=== PATIENT | male | born 1990 | race African-American/Black ===

== ENCOUNTER 2023-10-04 02:03 | Day surgery (SDC) | payer BC, SELFPAY ==
[2023-10-01 10:15] VITALS: BMI 25.8
--- NOTE | 2023-10-01 10:21 | PC.NURSE ---
Report to the Outpatient Waiting Room, entrance under the green pavilion located off [facility], at time 0730 on date 10/04/23. Planned Procedure Time: 0930. Time changes happen often and if your time is changed the preop area will call you the afternoon before. - You and your visitor will be asked to self-screen and do not enter if you have any COVID symptoms. - A mask is optional within the hospital at this time. Patients may have clear liquids (water, carbonated beverages, clear teas, apple juice) until 3 hours prior to surgery with a maximum of 20 ounces. - No food from midnight until time of surgery Take the following medications with a SIP of water the morning of surgery: N/A DO NOT STOP ANY OF YOUR OTHER PRESCRIPTION MEDICATIONS PRIOR TO SURGERY ?EXCEPT THE FOLLOWING Medications to discontinue per physician: N/A Date to take last dose: N/A Please no make-up, nail nepali, hairspray, perfume, deodorant, or body powder the day of surgery. No jewelry (including any body piercings) or valuables the day of surgery, leave them at home. Please take a shower or bath the night before, or the morning of, surgery with an antibacterial soap. Wear comfortable, loose fitting clothing. - Jewelry must be removed prior to entering the operating room. Rings and piercings that are not removed may be cut off. - The hospital will not accept responsibility for valuables. - Please leave all valuables, including medications, at home the day of surgery. If you are going home after surgery, a licensed bus driver supervisor must drive you home. - NO public transportation without another adult if you receive anesthesia. - We recommend that an adult stay with you for 24 hours following discharge. - We also recommend that you do not drive, make important decision, drink alcoholic beverages, or take any drugs that were not prescribed by your health care provider for at least 24 hours after your discharge time. Follow any additional instructions given to you from your surgeon. If you or anyone in your household have experienced Covid symptoms in the past week, please notify your surgeon or the nurse liaison at the phone number below for possible testing. Telephone instructions given to PT - XENIA CAMACHO and asked if any additional questions and then verbalized understanding. Patient advised to call surgeon office or pre surgery nurse liaison [phone] if any additional questions.
[2023-10-04] VITALS (8 sets, daily range): BP systolic 119–154; BP diastolic 64–85; PULSE 63–105; RESP 8–21; TEMP 36.7–37.1; O2SAT 97–100
--- NOTE | 2023-10-04 07:11 | PM.IMHP ---
H&P: HPI History of Present Illness Date/Time: 10/04/23 07:11 Chief Complaint: nasopharyngeal mass Review of Systems Review of Systems: All systems reviewed & are unremarkable except as noted in HPI and below PMFSH Social History Social History Smoking status: Former smoker Additional smoking assessment comments: FORMER 1 BLACK AND BROWN A DAY Alcohol intake: current Drinks per week: 2 Substance use: current Substance use type: marijuana Living arrangements: with family Spiritual care concerns: No Meds Home Medications and Allergies Home Medications Medication Instructions Recorded Confirmed Type No Home Medications 10/01/23 10/01/23 History Allergies Allergy/AdvReac Type Severity Reaction Status Date / Time No Known Allergies Allergy Verified 10/01/23 10:14 Exam Narrative: enlarged tissue in nasopharynx on endoscopic exam, non obstructive, not friable. 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 r/b/a reviewed, pt understands and agrees to proceed. Refer to outpt H&P for additional detail.
--- NOTE | 2023-10-04 07:13 | WPDHPUPDATE1 ---
History and Physical Update Update Date/Time: 10/04/23 07:13 History and Physical has been reviewed, including an updated exam of the patient. There are NO changes in the patient's condition. Risks, benefits, and alternatives have been discussed and questions answered. Patient agrees to proceed with procedure.
[2023-10-04] MEDS: LACTATED RINGERS 1,000 ML 30 ML IV CONT (07:40)
--- NOTE | 2023-10-04 08:16 | WPDANESEPPF ---
Anes - Initial Pre Proc Eval Procedure: Operation Date: 10/04/23 09:30 Proposed Procedures p Direct Laryngoscopy with Biopsy of Posterior Nasopharyngeal Mass - Maximilian Soto MD Date/Time: 10/04/23 08:16 Surgeon: Maximilian Soto MD Pre Op Diagnosis: mass of nasopharynx Patient Data Age: 33 Gender: M Height: 1.8 m Weight: 89.25 kg Last Vital Signs Temp 37.1 C 10/04/23 07:22 Pulse 65 10/04/23 07:22 Resp 20 10/04/23 07:22 BP 154/85 H 10/04/23 07:22 Pulse Ox 100 10/04/23 07:22 O2 Del Method Room Air 10/04/23 07:22 Allergies Allergy/AdvReac Type Severity Reaction Status Date / Time No Known Allergies Allergy Verified 10/04/23 07:36 Home Medications Medication Instructions Recorded Confirmed Type No Home Medications 10/01/23 10/04/23 History Patient hx anesthesia problems: none Family hx anesthesia problems: none Results Review: All pre-operative results and documents have been reviewed as part of the pre-operative evaluation. [facility] Past Medical History Medical History (Updated 10/04/23 @ 08:17 by Domingo Mccormick DO) Anxiety Asthma Diverticulitis GERD (gastroesophageal reflux disease) Surgical History Surgical History (Updated 10/04/23 @ 08:17 by Domingo Mccormick DO) History of cholecystectomy Social History Social History Smoking status: Former smoker Additional smoking assessment comments: FORMER 1 BLACK AND BROWN A DAY Alcohol intake: current Drinks per week: 2 Substance use: current Substance use type: marijuana Living arrangements: with family Spiritual care concerns: No Anes - Eval Final PreProcedure Day of Procedure 10/04/23 08:16 Patient weight: overweight Heart: regular rate and rhythm Lungs: clear to auscultation Airway: Mallampati scale class II Neurological: alert and oriented Last oral intake: >/= 8 hours ASA classification: III Emergent: no Anesthetic plan: proceed Anesthesia type and monitoring: general ETT and standard monitoring Results Review: All pre-operative results and documents have been reviewed as part of the pre-operative evaluation. Informed Consent: The patient's anesthetic plan and its attendant risks and benefits were discussed with the patient/family/POA. Questions were solicited and answers provided to the satisfaction of the patient/family/POA.
[2023-10-04] MEDS: FAMOTIDINE 20 MG/2 ML VIAL IV PUSH (09:05)
[2023-10-04] MEDS: OXYMETAZOLINE HCL 0.05% NAS 15 ML BTL (*BKC) 1 SPRAY NASAL (09:40)
--- NOTE | 2023-10-04 09:43 | W.PM.PROC2 ---
Procedure Note - Detailed Date of Procedure 10/04/23 Pre-op Diagnosis mass of nasopharynx Post-op Diagnosis Same Procedure Performed Nasal endoscopy with biopsy of nasopharynx Surgeon Maximilian Soto MD Anesthesia General Indications nasopharyngeal lesion Findings Significant right septal deviation. Nasopharynx does not show a discrete mass but rather general inflammatory changes. Several biopsies taken. Photos taken before and after. Pt is a smoker. Description of Procedure On the date of surgery, patient was identified in preoperative holding area. All questions answered, consent was signed and verified. He was then brought back to the OR and placed under GETA. Timeout performed, draped in standard fashion for nasal endoscopy with biopsy. Afrin soaked cottonoids placed bilaterally. Significant right septal deviation so endoscopic biopsy done on the left. First the nasopharynx was visualized, findings as noted above. Photo taken. Then using biopsy forceps, several small biopsies taken of nasopharyngeal tissue. Hemostasis obtained with afrin cottonoid. Photo taken after. Pt then returned to anesthesia who woke him up, extubated him and transferred him to PACU for recovery in stable condition without complication. Estimated Blood Loss 1 Drains No Packing No Pathology Yes (nasopharyngeal tissue biopsy) Complications No immediate complications Condition Stable Disposition PACU
== END 2023-10-04 11:09 | disposition home or self-care (01) ==
PROVIDERS: Visit Provider Otolaryngology
PROC: 0CJS8ZZ Inspection of Larynx, Via Natural or Artificial Opening Endoscopic (ICD-10-PCS; CPT 31237; principal; 2023-10-04 09:30)
DX: J32.9 Chronic sinusitis, unspecified (principal); Z87.891 Personal history of nicotine dependence; F12.90 Cannabis use, unspecified, uncomplicated
CPT/HCPCS: 31237; 88305; A9270; J0330; J1100; J2250; J2405; J3010; J7120